=== PATIENT | female | born 1995 | race Caucasian/White ===

== ENCOUNTER 2018-02-09 16:13 | Emergency (ER) | payer OTHER ==
[~2018-02-09] VITALS: Ht 162.6 cm; Wt 74.4 kg
[2018-02-09 16:22] VITALS: BP 137/77
--- NOTE | 2018-02-09 16:36 | NUR ---
PATIENT AMBULATED TO BED 2. REPORT GIVEN TO ELEANOR RAMIREZ.
--- NOTE | 2018-02-09 16:47 | NUR ---
22 YO F BIB FAMILY W/ C/O RASH OVER WHOLE BODY & ITCHING/BURNING THAT BEGAN YESTERDAY. PT UNSURE WHAT MAY HAVE CAUSED THE RAHS. DENIES ANY NEW SOAPS/DETERGANTS. PT AAOX4. GCS 15. CMS INTACT. SKIN INTACT. RED PAPULES GENERALIZED OVER THE BODY. NO DRAINAGE NOTED. RR EVEN AND UNLABORED. ABD SOFT, NON-TENDER. ER MD NOTIFIED. PT NEEDS MET. WILL CONTINUE TO MONITOR.
[2018-02-09] MEDS ORDERED: diphenhydrAMINE 50 MG/ML VIAL IM ONE (16:50)
[2018-02-09] MEDS ORDERED: DEXAMETHASONE 10 MG/ML VIAL IM ONE (16:50)
--- NOTE | 2018-02-09 17:16 | NUR ---
pt resting comfortably in [facility] at this time w/ vss, rr even and unlabored. safety precautions in place. will continue to monitor.
[2018-02-09 18:18] VITALS: BP 134/77
--- NOTE | 2018-02-09 18:19 | NUR ---
Patient discharged with v/s stable. Written and verbal after care instructions given and explained. Patient alert, oriented and verbalized understanding of instructions. Ambulatory with steady gait. All questions addressed prior to discharge. ID band removed. Patient advised to follow up with PMD. Rx of Prednisone and Atarax given. Patient educated on indication of medication including possible reaction and side effects. Opportunity to ask questions provided and answered.
== END 2018-02-09 18:19 | disposition home or self-care (01) ==
LOC: MED 16:13
DX: T63.481A Toxic effect of venom of other arthropod, accidental (unintentional), initial encounter (principal); L50.9 Urticaria, unspecified; Y92.89 Other specified places as the place of occurrence of the external cause; E11.9 Type 2 diabetes mellitus without complications
CPT/HCPCS: 96372; 99284; J1100; J1200